=== PATIENT | female | born 1985 | race Caucasian/White ===

== ENCOUNTER 2016-04-17 07:38 | Emergency (ER) | payer OTHER ==
[2016-04-17 07:52] VITALS: BP 123/79; PULSE 88; TEMP 98.3; BMI 31.4
[2016-04-17 08:32] LABS: URINE APPEARANCE CLEAR; URINE BILIRUBIN NEGATIVE (NEGATIVE); URINE COLOR YELLOW; URINE GLUCOSE (UA) NEGATIVE (NEGATIVE); URINE KETONE NEGATIVE (NEGATIVE); URINE LEUK ESTERASE NEGATIVE (NEGATIVE); URINE NITRITE NEGATIVE (NEGATIVE); URINE PROTEIN NEGATIVE (NEGATIVE); URINE UROBILINOGEN NEGATIVE E.U./dl (0.2-1.0)
--- NOTE | 2016-04-17 08:34 | PDOC ---
History of Present Illness - General Chief Complaint: Back Pain Stated Complaint: LOW BACK PAIN Time Seen by Provider: 04/17/16 08:10 History Source: Patient Exam Limitations: No Limitations - History of Present Illness Initial Comments: 04/17/16 08:30 30 yr female presents with low back pain radiates to the left thigh and buttock for 3 days. Pt states she lifts her toddler often states she may have pulled her back. No medical history or allergies, LMP 3 weeks ago. Denies urine or bowell dysfunction, no saddle anesthesia. Occurred: reports: last week Severity: reports: moderate Pain Location: reports: back Method of Injury: Yes: unknown Loss of Consciousness: no loss of consciousness Associated Symptoms (Fall): denies symptoms Past History - Past Medical History Allergies/Adverse Reactions: Allergies Allergy/AdvReac Type Severity Reaction Status Date / Time No Known Allergies Allergy Verified 04/17/16 07:44 Home Medications: Ambulatory Orders Vit #108/Iron/FA [ One Tablet] 1 each PO DAILY 10/22/13 Calcium Carbonate [Calcium] 500 mg PO DAILY 10/25/13 Ibuprofen [Motrin -] 600 mg PO Q4H PRN #60 tablet 10/28/13 Cyclobenzaprine HCl [Flexeril -] 10 mg PO TID PRN #21 tablet 04/17/16 Naproxen [Naprosyn -] 500 mg PO BID PRN #14 tablet 04/17/16 Asthma: No Cancer: No Cardiac Disorders: No Diabetes: No HTN: No Seizures: No Thyroid Disease: No Other medical history: pitutary gland tumor - Surgical History Abdominal Surgery: Yes (lt ovary removed endometriosis) - Psycho/Social/Smoking Cessation Hx Anxiety: No Suicidal Ideation: No Smoking History: Never smoked Have you smoked in the past 12 months: No Information on smoking cessation initiated: No Hx Alcohol Use: No Drug/Substance Use Hx: No Substance Use Type: None Hx Substance Use Treatment: No Trauma Specific PMHX - Complaint Specific PMHX Arthritis: No Back Injury: No Neck Injury: No Hx Sacro Iliac Joint Dysfunction: No Review of Systems - Review of Systems Able to Perform ROS?: Yes Is the patient limited Mauritanian proficient: No Constitutional: No: Symptoms Reported HEENTM: No: Symptoms Reported Respiratory: No: Symptoms reported Cardiac (ROS): No: Symptoms Reported ABD/GI: No: Symptoms Reported : No: Symptoms Reported Musculoskeletal: Yes: See HPI, Back Pain Integumentary: No: Symptoms Reported *Physical Exam - Vital Signs Last Vital Signs Temp Pulse Resp BP Pulse Ox 98.3 F 88 18 123/79 100 04/17/16 07:45 04/17/16 07:45 04/17/16 07:45 04/17/16 07:45 04/17/16 07:45 - Physical Exam General Appearance: Yes: Nourished, Appropriately Dressed HEENT: positive: EOMI, PAO, Normal ENT Inspection, TMs Normal, Pharynx Normal Neck: positive: Supple. negative: Tender Respiratory/Chest: positive: Lungs Clear, Normal Breath Sounds. negative: Chest Tender Cardiovascular: positive: Regular Rhythm, Regular Rate Gastrointestinal/Abdominal: positive: Normal Bowel Sounds, Soft Musculoskeletal: positive: Normal Inspection, Other (low back pain no vetebral tenderness, paraspinal left side muscle tenderness to touch ). negative: CVA Tenderness, CVA Tenderness (R), CVA Tenderness (L), Decreased Range of Motion Extremity: positive: Normal Capillary Refill, Normal Inspection, Normal Range of Motion, Other (neg SLR) Integumentary: positive: Normal Color, Dry, Warm Neurologic: positive: Fully Oriented, Alert, Normal Mood/Affect, Normal Response , Motor Strength 5/5 Medical Decision Making - Medical Decision Making 04/17/16 08:36 cc: low back pain radiates to left buttock and thigh no urine or bowel dysfunction no abd pain or nvd will r/o , UTI toradol for pain 04/17/16 15:50 I have discussed in detail the plan of care with patient. all questions asked and answered prior to discharge. 04/17/16 15:52 *DC/Admit/Observation/Transfer Diagnosis at time of Disposition: Low back pain Qualifiers: Chronicity: acute Back pain laterality: midline Sciatica presence: with sciatica Sciatica laterality: sciatica of left side Qualified Code(s): M54.42 - Lumbago with sciatica, left side - Discharge Dispostion Disposition: HOME Condition at time of disposition: Good - Prescriptions Prescriptions: Cyclobenzaprine HCl [Flexeril -] 10 mg PO TID PRN #21 tablet PRN Reason: Muscle Spasms Naproxen [Naprosyn -] 500 mg PO BID PRN #14 tablet PRN Reason: Back Pain - Referrals Referrals: STAFF,NOT ON [Primary Care Provider] - Maicol Godinez MD [Staff Physician] - - Patient Instructions Additional Instructions: apply heating pad to low back every 3 hrs for 15 minutes or so take naprosyn as directed for pain take flexeril muscle relaxant as needed DO NOT DRIVE OR DRINK ALCOHOL WHILE TAKING FLEXERIL follow with your doctor or the orthopedist if symptoms worsen or do not improve in a few days
[2016-04-17 08:37] LABS: URINE BLOOD 1+ (NEGATIVE)
[2016-04-17 08:39] LABS: URINE BACTERIA RARE /hpf (NONE SEEN); URINE MUCUS FEW; URINE RBC 2 /hpf (0-3); URINE WBC 1 /hpf (3-5)
[2016-04-17] MEDS ORDERED: KETOROLAC TROMETHAMINE 60 MG/2 ML VIAL IM ONE (08:42)
[2016-04-17] MEDS ORDERED: KETOROLAC TROMETHAMINE 60 MG/2 ML VIAL ONE (08:47)
== END 2016-04-17 09:21 | disposition home or self-care (01) ==
LOC: JERFT 07:38 → JER 07:38 → JERFT 09:21
PROC: 3E0233Z Introduction of Anti-inflammatory into Muscle, Percutaneous Approach (ICD-10-PCS; principal; 2016-04-17)
DX: M54.42 Lumbago with sciatica, left side (principal); X50.0XXA Overexertion from strenuous movement or load, initial encounter; X50.9XXA Other and unspecified overexertion or strenuous movements or postures, initial encounter; Y93.F2 Activity, caregiving, lifting; Y92.018 Other place in single-family (private) house as the place of occurrence of the external cause
CPT/HCPCS: 81003; 81015; 84703; 99281-25

== ENCOUNTER 2016-11-05 09:15 | Emergency (ER) | payer OTHER ==
[2016-11-05 09:19] VITALS: BP 124/74; PULSE 76; TEMP 98.4; BMI 31.1
--- NOTE | 2016-11-05 09:49 | PDOC ---
History of Present Illness - History of Present Illness Initial Comments: 11/05/16 10:22 The patient is a 31 year old female, with a past medical history of endometriosis s/p left ovarian cyst removal and pituitary gland tumor, who presents to the emergency department with complaint of shortness of breath and mild, intermittent chest discomfort s/p getting upset last night. She denies exacerbating or alleviating factors for her shortness of breath. She denies history of asthma. She denies recent travels. She states she had a planned vacation for yesterday, however, something stressful happened and she was unable to go. She reports her chest discomfort as a throbbing that comes and goes localized to the her left anterior chest wall and non-radiating. She rates her chest discomfort as 5/10 in severity and denies any exacerbating or alleviating factors to her pain when the pain is present. She denies headache and dizziness. She denies fever, chills, nausea, vomit, diarrhea and constipation She denies dysuria, frequency, urgency and hematuria. Allergies: NKDA Past surgical history: Pt denies Social history: Pt denies use of tobacco or illicit drugs. Pt denies alcohol consumption PCP - Dr. Luzmaria Alexander ([phone]) <Petrona Beth - Last Filed: 11/05/16 11:52> <Lilliana Rodriguez - Last Filed: 11/05/16 16:03> - General Chief Complaint: Shortness of Breath Stated Complaint: SOB, CHEST PAIN Time Seen by Provider: 11/05/16 09:35 Past History <Petrona Beth - Last Filed: 11/05/16 11:52> - Past Medical History Asthma: No Cancer: No Cardiac Disorders: No Diabetes: No HTN: No Psychiatric Problems: Yes (possible anxiety) Seizures: No Thyroid Disease: No - Surgical History Abdominal Surgery: Yes (lt ovary removed endometriosis) - Psycho/Social/Smoking Cessation Hx Anxiety: No Suicidal Ideation: No Smoking History: Never smoked Have you smoked in the past 12 months: No Information on smoking cessation initiated: No Hx Alcohol Use: No Drug/Substance Use Hx: No Substance Use Type: None Hx Substance Use Treatment: No <Lilliana Rodriguez - Last Filed: 11/05/16 16:03> - Past Medical History Allergies/Adverse Reactions: Allergies Allergy/AdvReac Type Severity Reaction Status Date / Time No Known Allergies Allergy Verified 11/05/16 09:19 Home Medications: Ambulatory Orders Vit #108/Iron/FA [ One Tablet] 1 each PO DAILY 10/22/13 Calcium Carbonate [Calcium] 500 mg PO DAILY 10/25/13 Ibuprofen [Motrin -] 600 mg PO Q4H PRN #60 tablet 10/28/13 Cyclobenzaprine HCl [Flexeril -] 10 mg PO TID PRN #21 tablet 04/17/16 Naproxen [Naprosyn -] 500 mg PO BID PRN #14 tablet 04/17/16 Review of Systems - Review of Systems Able to Perform ROS?: Yes Comments:: 11/05/16 10:22 GENERAL/CONSTITUTIONAL: No fever or chills. No weakness. HEAD, EYES, EARS, NOSE AND THROAT: No change in vision. No ear pain or discharge. No sore throat. CARDIOVASCULAR: (+) shortness of breath and chest discomfort RESPIRATORY: No cough, wheezing, or hemoptysis. GASTROINTESTINAL: No nausea, vomiting, diarrhea or constipation. GENITOURINARY: No dysuria, frequency, or change in urination. MUSCULOSKELETAL: No joint or muscle swelling or pain. No neck or back pain. SKIN: No rash NEUROLOGIC: No headache, vertigo, loss of consciousness, or change in strength/ sensation. ENDOCRINE: No increased thirst. No abnormal weight change. HEMATOLOGIC/LYMPHATIC: No anemia, easy bleeding, or history of blood clots. ALLERGIC/IMMUNOLOGIC: No hives or skin allergy. <Petrona Beth - Last Filed: 11/05/16 11:52> *Physical Exam - Vital Signs Last Vital Signs Temp Pulse Resp BP Pulse Ox 98.4 F 76 18 124/74 100 11/05/16 09:17 11/05/16 09:17 11/05/16 09:17 11/05/16 09:17 11/05/16 09:17 - Physical Exam Comments: 11/05/16 10:23 GENERAL: Awake, alert, and fully oriented, in no acute distress HEAD: No signs of trauma EYES: PERRLA, EOMI, sclera anicteric, conjunctiva clear ENT: Auricles normal inspection, hearing grossly normal, nares patent, oropharynx clear without exudates. Moist mucosa NECK: Normal ROM, supple, no lymphadenopathy, JVD, or masses LUNGS: Breath sounds equal, clear to auscultation bilaterally. No wheezes, and no crackles HEART: Regular rate and rhythm, normal S1 and S2, no murmurs, rubs or gallops ABDOMEN: Soft, nontender, normoactive bowel sounds. No guarding, no rebound. No masses EXTREMITIES: Normal range of motion, no edema. No clubbing or cyanosis. No cords, erythema, or tenderness NEUROLOGICAL: Cranial nerves II through XII grossly intact. Normal speech, normal gait SKIN: Warm, Dry, normal turgor, no rashes or lesions noted. <Petrona Beth - Last Filed: 11/05/16 11:52> - Vital Signs Last Vital Signs Temp Pulse Resp BP Pulse Ox 98.4 F 76 18 124/74 100 11/05/16 09:17 11/05/16 09:17 11/05/16 09:17 11/05/16 09:17 11/05/16 09:17 <Lilliana Rodriguez - Last Filed: 11/05/16 16:03> Heart Score/ECG Review - [place] Comment: 11/05/16 09:30 EKG was read by Dr. Rodriguez Impression: Normal sinus rhythm <Petrona Beth - Last Filed: 11/05/16 11:52> ED Treatment Course - RADIOLOGY Radiograph Interpretation: 11/05/16 11:23 CXR was read by Dr. Dias at 11:13 Impression: No acute pathology <Petrona Beth - Last Filed: 11/05/16 11:52> Medical Decision Making - Medical Decision Making 11/05/16 16:01 PT presents to the ED complaining of a two day history of atypical chest pain. EKG and CXR are normal. HEART score is 0, PERC negative. Most likely musculoskeletal chest pain. Will discharge home with medical follow up. <Lilliana Rodriguez - Last Filed: 11/05/16 16:03> *DC/Admit/Observation/Transfer - Attestations Scribe Attestion: 11/05/16 10:23 Documentation prepared by Petrona Beth, acting as medical technician assistant for Lilliana Rodriguez MD, <Petrona Beth - Last Filed: 11/05/16 11:52> - Discharge Dispostion Admit: No <Lilliana Rodriguez - Last Filed: 11/05/16 16:03> Diagnosis at time of Disposition: DISCHARGED - Discharge Dispostion Disposition: HOME Condition at time of disposition: Good - Referrals Referrals: Luzmaria Alexander MD [Primary Care Provider] - - Patient Instructions Printed Discharge Instructions: DI for Atypical Chest Pain
[2016-11-05] MEDS ORDERED: IBUPROFEN 600 MG TABLET (FP) PO ONE ×2 (11:40→11:48)
--- NOTE | 2016-11-05 13:17 | EKG ---
Test Reason : Blood Pressure : / mmHG Vent. Rate : 073 BPM Atrial Rate : 073 BPM P-R Int : 112 ms QRS Dur : 078 ms QT Int : 362 ms P-R-T Axes : 039 048 051 degrees QTc Int : 398 ms NORMAL SINUS RHYTHM NORMAL ECG NO PREVIOUS ECGS AVAILABLE BASELINE ARTIFACT Confirmed by LESLEE SOUSA, BHARATHI ([id number]) on 11/05/2016 1:17:28 PM Referred By: Confirmed By:BHARATHI CAMILO MD
== END 2016-11-05 12:44 | disposition home or self-care (01) ==
LOC: JER 09:15
DX: R07.89 Other chest pain (principal); F99 Mental disorder, not otherwise specified
CPT/HCPCS: 71020-TC; 84703; 93005; 93010; 99282-25

== ENCOUNTER 2018-01-04 01:05 | Inpatient (IN) | payer OTHER ==
[2018-01-04] MEDS ORDERED: AMPICILLIN - 2 GM in SODIUM CHLORIDE 100 ML IVPB ONE (01:30)
[2018-01-04] MEDS: DEXTROSE 5%-LACTATED RINGERS 1,000 ML IV SCH (01:30)
[2018-01-04 01:41] LABS: BASO % 0.4 % (0-2.0); EOS % 0.3 % (0-4.5); HEMOGLOBIN 11.7 GM/dL (10.7-15.3); MCH 31.2 pg (25.7-33.7); MCHC 33.5 g/dl (32.0-36.0); MEAN CELL VOLUME 93.1 fl (80-96); MEAN PLT VOLUME 9.4 fl (7.5-11.1); MONO % 7.5 % (3.8-10.2); NEUT % 74.8 % (42.8-82.8); PLATELET COUNT 176 K/MM3 (134-434); RBC 3.76 M/mm3 (3.60-5.2); RDW 13.4 % (11.6-15.6); WHITE BLOOD COUNT 13.4 K/mm3 (4.0-10.0)
[2018-01-04 01:54] LABS: INR 0.87 (0.83-1.09); PROTHROMBIN TIME (PATIENT) 10.3 SEC (9.7-13.0)
[2018-01-04] MEDS ORDERED: PROMETHAZINE HCL 25 MG/1 ML VIAL IVPB PRN (01:54)
[2018-01-04] MEDS ORDERED: BUTORPHANOL TARTRATE 1 MG/ML VIAL IVPB PRN ×2 (01:54→02:25)
[2018-01-04 01:56] LABS: ACTIVATED PTT 23.8 SECONDS (25.2-36.5)
[2018-01-04 02:00] LABS: ANION GAP 10 MMOL/L (8-16); BLOOD UREA NITROGEN 12 mg/dL (7-18); CALCIUM 8.9 mg/dL (8.5-10.1); CHLORIDE 108 mmol/L (98-107); CO2 21 mmol/L (21-32); CREATININE 0.6 mg/dL (0.55-1.3); GLUCOSE,RANDOM 112 mg/dL (74-106); POTASSIUM 3.9 mmol/L (3.5-5.1); SODIUM 139 mmol/L (136-145)
[2018-01-04 02:21] VITALS: BMI 36.2
--- NOTE | 2018-01-04 03:10 | HP ---
Past Medical History - Primary Care Physician PCP:: Canelo Greer - Admission Chief Complaint: 38.4 weeks, labor History of Present Illness: 32 yo f [place] c [place] 01/14/18 38,4 weeks, c/o contraction,., no rom, cx 3 cm 80 vx -2 mi, fh cat i, regular contraction History Source: Patient Limitations to Obtaining History: No Limitations - Past Medical History ...: 2 ...Para: 1 ...Term: 1 ...: 0 ...Spon : 0 ...Induced : 0 ...Multiple Gestation: 0 ...LMP: 04/06/17 ... Weeks Gestation by Dates: 39.0 ...EDC by Dates: 01/11/18 ...EDC by [facility]: 01/14/18 Endocrine: Yes: Other (pituitary microadenoma) Additional Medical History: pituitary tumor - Past Surgical History Past Surgical History: Yes: Oopherectomy (lt ovarian cystectomy, endometriosis) - Smoking History Smoking history: Never smoked Have you smoked in the past 12 months: No - Alcohol/Substance Use Hx Alcohol Use: No History of Substance Use: reports: None - Social History Usual Living Arrangement: Yes: With Spouse ADL: Independent History of Recent Travel: No Home Medications - Allergies Allergies/Adverse Reactions: Allergies Allergy/AdvReac Type Severity Reaction Status Date / Time No Known Allergies Allergy Verified 12/30/17 02:49 - Home Medications Home Medications: Ambulatory Orders Vitamins (Sjr) - 1 tab PO DAILY 12/04/17 Review of Systems - Review of Systems Constitutional: reports: No Symptoms Eyes: reports: No Symptoms HENT: reports: No Symptoms Neck: reports: No Symptoms Cardiovascular: reports: No Symptoms Respiratory: reports: No Symptoms Gastrointestinal: reports: No Symptoms Genitourinary: reports: No Symptoms Breasts: reports: No Symptoms Reported Musculoskeletal: reports: No Symptoms Integumentary: reports: No Symptoms Neurological: reports: No Symptoms Endocrine: reports: No Symptoms Hematology/Lymphatic: reports: No Symptoms Psychiatric: reports: No Symptoms Physical Exam - Maternity Vital Signs: Vital Signs Temperature 97.9 F 01/04/18 01:05 Pulse Rate 95 H 01/04/18 01:05 Respiratory Rate 18 01/04/18 01:05 Blood Pressure 115/80 01/04/18 01:05 O2 Sat by Pulse Oximetry (%) Constitutional: Yes: Well Nourished, No Distress, Calm Eyes: Yes: WNL, Conjunctiva Clear, EOM Intact HENT: Yes: WNL, Atraumatic, Normocephalic Neck: Yes: WNL, Supple, Trachea Midline Cardiovascular: Yes: WNL, Regular Rate and Rhythm Breast(s): Yes: WNL - Abdominal Exam/OB Fundal Height: 38 Number of Fetuses: Single Presentation: Vertex Contractions: Yes Regularity: Regular Intensity: Mod/Strong Monitor Mode: External Heart Rate Location: [facility] Category: I Accelerations: Uniform Decelerations: None - Vaginal Exam/OB Vaginal Bleediing: Bloody Show Speculum Exam: No Dilatation (cm): 3 cm Effacement (%): 80 Amniotic Membrane Status: Intact Presentation: Vertex/Position Station: -2 - Physical Exam Musculoskeletal: Yes: WNL Edema: Yes Edema: LLE: Trace, RLE: Trace Deep Tendon Reflex Grade: Normal +2 ...Motor Strength: WNL Psychiatric: Yes: WNL - Labs Lab Results: CBC, BMP 01/04/18 01:30 01/04/18 01:30 Hemorrhage Risk Assessment - Risk Factors Medium Risk Factors: Yes: None High Risk Factors: Yes: None Risk Score: 1 Risk Level: Medium Risk Problem List - Problems (1) with 38 completed weeks gestation Code(s): Z3A.38 - 38 WEEKS GESTATION OF (2) First stage of labor established Code(s): XEA5170 - (3) Group B streptococcal infection during Code(s): O98.819 - OTH MATERNAL INFEC/PARASTC DISEASES COMP PREG, UNSP TRI; B95.1 - STREPTOCOCCUS, GROUP B, CAUSING DISEASES CLASSD ELSWHR Assessment/Plan plan admit, FHM, iv ampicillin, pain management expect vaginal delivery
[2018-01-04] MEDS ORDERED: PROMETHAZINE HCL 25 MG/1 ML VIAL IVPUSH ONE (03:47)
[2018-01-04] MEDS ORDERED: BUTORPHANOL TARTRATE 1 MG/ML VIAL IVPUSH ONE (03:47)
[2018-01-04] MEDS ORDERED: BUTORPHANOL TARTRATE 1 MG/ML VIAL ONE ×2 (03:54)
[2018-01-04] MEDS ORDERED: PROMETHAZINE HCL 25 MG/1 ML VIAL ONE (03:54)
[2018-01-04] MEDS ORDERED: AMPICILLIN SODIUM 1 GM VIAL ONE (05:09)
[2018-01-04] MEDS ORDERED: AMPICILLIN - 1 GM in SODIUM CHLORIDE 100 ML IVPB SCH (05:30)
[2018-01-04] MEDS ORDERED: TUBERCULIN PPD 5 TU/0.1ML SYRINGE (IN PATIENT USE ONLY) ID ONE (06:30)
[2018-01-04] MEDS ORDERED: LIDOCAINE HCL 1% PRESERVATIVE FREE - 30ML VIAL ONE (07:00)
[2018-01-04] MEDS ORDERED: OXYTOCIN 20 UNITS in 0.9% NS 20 UNIT/1,000 ML INFUS.BAG IV ONE (07:00)
[2018-01-04] MEDS: OXYTOCIN 20 UNITS in 0.9% NS 20 UNIT/1,000 ML INFUS.BAG IV SCH (08:55)
[2018-01-04] MEDS ORDERED: BENZOCAINE 28 GM HEMORRHOIDAL OINTMENT TP PRN (09:02)
[2018-01-04] MEDS ORDERED: WITCH HAZEL 50% (TUCKS) 40 PAD/JAR PAD TP PRN (09:02)
[2018-01-04] MEDS ORDERED: METHYLERGONOVINE MALEATE 0.2 MG/1 ML AMP IM PRN (09:02)
[2018-01-04] MEDS ORDERED: BISACODYL 10 MG SUPP.RECT RC PRN (09:02)
[2018-01-04] MEDS ORDERED: BENZOCAINE 20% 57 GM BOTTLE TP PRN (09:02)
[2018-01-04] MEDS ORDERED: D5W-LR W/ 20 UNITS OXYTOCIN 20 UNIT/1,000 ML INFUS.BAG IV SCH (09:15)
[2018-01-04 09:24] LABS: VENOUS PC02 65.8 mmHg (38-52); VENOUS PH 7.22 (7.32-7.42); VENOUS PO2 17.1 mmHg (28-48)
[2018-01-04 09:25] LABS: ARTERIAL BLD GAS O2 SATURATION 77.1 % (90-98.9); ARTERIAL BLOOD GAS PO2 39.9 mmHg (80-100); ARTERIAL BLOOD GAS pH 7.36 (7.35-7.45)
[2018-01-04] MEDS: PRENATAL VITAMINS W/ FOLIC ACID TABLET (FP) PO SCH (10:00)
[2018-01-04] MEDS: FERROUS SO4 325 MG TABLET (FP) PO SCH ×2 (10:00→21:35)
[2018-01-04] MEDS ORDERED: IBUPROFEN 600 MG TABLET (FP) PO ONE (11:54)
[2018-01-04] MEDS ORDERED: ACETAMINOPHEN 325 MG TABLET (FP) ONE (11:54)
[2018-01-04] MEDS: IBUPROFEN 600 MG TABLET (FP) PO PRN (12:00)
[2018-01-04] MEDS: ACETAMINOPHEN 325 MG TABLET (FP) PO PRN (12:00)
[2018-01-05] MEDS: IBUPROFEN 600 MG TABLET (FP) PO PRN (06:28)
[2018-01-05] MEDS: ACETAMINOPHEN 325 MG TABLET (FP) PO PRN (06:29)
[2018-01-05 07:39] LABS: BASO % 0.3 % (0-2.0); EOS % 0.4 % (0-4.5); HEMATOCRIT 29.1 % (32.4-45.2); HEMOGLOBIN 9.6 GM/dL (10.7-15.3); MCH 31.3 pg (25.7-33.7); MCHC 33.2 g/dl (32.0-36.0); MEAN CELL VOLUME 94.5 fl (80-96); MEAN PLT VOLUME 9.5 fl (7.5-11.1); MONO % 6.7 % (3.8-10.2); NEUT % 71.6 % (42.8-82.8); PLATELET COUNT 118 K/MM3 (134-434); RBC 3.08 M/mm3 (3.60-5.2); RDW 13.5 % (11.6-15.6); WHITE BLOOD COUNT 13.6 K/mm3 (4.0-10.0)
[2018-01-05] MEDS: PRENATAL VITAMINS W/ FOLIC ACID TABLET (FP) PO SCH (10:03)
[2018-01-05] MEDS: FERROUS SO4 325 MG TABLET (FP) PO SCH ×2 (10:03→21:26)
[2018-01-05] MEDS: DEXTROSE 5%-LACTATED RINGERS 1,000 ML IV SCH (10:04)
[2018-01-05] MEDS: OXYTOCIN 20 UNITS in 0.9% NS 20 UNIT/1,000 ML INFUS.BAG IV SCH (10:04)
[2018-01-05] MEDS ORDERED: SENNOSIDES/DOCUSATE COMBO (SENNA PLUS) TABLET (UD) PO PRN (16:41)
--- NOTE | 2018-01-05 19:10 | PN ---
Post Progress Note - Subjective Subjective: No complaints Post Day: 1 Type of Delivery: Vital Signs: Vital Signs Temperature 97.9 F 01/05/18 08:28 Pulse Rate 72 01/05/18 08:28 Respiratory Rate 20 01/05/18 08:28 Blood Pressure 127/72 01/05/18 08:28 O2 Sat by Pulse Oximetry (%) Breast Exam: Yes: Soft Uterus: Yes: Fundus Firm, Fundus below umbilicus, Non-tender Abdomen/GI: Yes: Abdomen soft, Passing flatus, Tolerating PO Lochia: Yes: Rubra Lochia, amount: Small Extremities: Yes: Calves non-tender Perineum: Yes: Laceration (repair intact) Activity: Ambulating - Labs Labs: CBC WBC 13.6 K/mm3 (4.0-10.0) H 01/05/18 07:02 RBC 3.08 M/mm3 (3.60-5.2) L 01/05/18 07:02 Hgb 9.6 GM/dL (10.7-15.3) L 01/05/18 07:02 Hct 29.1 % (32.4-45.2) L D 01/05/18 07:02 MCV 94.5 fl (80-96) 01/05/18 07:02 MCH 31.3 pg (25.7-33.7) 01/05/18 07:02 MCHC 33.2 g/dl (32.0-36.0) 01/05/18 07:02 RDW 13.5 % (11.6-15.6) 01/05/18 07:02 Plt Count 118 K/MM3 (134-434) L D 01/05/18 07:02 MPV 9.5 fl (7.5-11.1) 01/05/18 07:02 Absolute Neuts (auto) 9.7 K/mm3 (1.5-8.0) H 01/05/18 07:02 Neutrophils % 71.6 % (42.8-82.8) 01/05/18 07:02 Lymphocytes % 21.0 % (8-40) D 01/05/18 07:02 Monocytes % 6.7 % (3.8-10.2) 01/05/18 07:02 Eosinophils % 0.4 % (0-4.5) 01/05/18 07:02 Basophils % 0.3 % (0-2.0) 01/05/18 07:02 Nucleated RBC % 0 % (0-0) 01/05/18 07:02 Assessment/Plan 32yo P2 s/p , doing well stable, afebrile. Asymptomatic for anemia. care instructions reviewed. Continue routine care. Ambulation encouraged Discharge instruction reviewed.
--- NOTE | 2018-01-05 19:16 | DS ---
Physical Exam-DIRECTOR OF ENTERTAINMENT Vital Signs: Vital Signs Temperature 97.9 F 01/05/18 08:28 Pulse Rate 72 01/05/18 08:28 Respiratory Rate 20 01/05/18 08:28 Blood Pressure 127/72 01/05/18 08:28 O2 Sat by Pulse Oximetry (%) Constitutional: Yes: Well Nourished, No Distress, Calm Eyes: Yes: WNL, Conjunctiva Clear HENT: Yes: WNL, Atraumatic, Normocephalic Neck: Yes: WNL, Supple, Trachea Midline Cardiovascular: Yes: WNL, Regular Rate and Rhythm Respiratory: Yes: WNL, Regular, CTA Bilaterally Gastrointestinal: Yes: WNL, Normal Bowel Sounds, Soft ...Rectal Exam: Yes: Deferred Renal/: Yes: WNL ....Post : Yes: Uterus firm, Uterus non-tender, Slight lochia rubra Breast(s): Yes: WNL Musculoskeletal: Yes: WNL Extremities: Yes: WNL Edema: Yes Edema: LLE: Trace, RLE: Trace Integumentary: Yes: WNL Neurological: Yes: WNL, Alert, Oriented ...Motor Strength: WNL Psychiatric: Yes: WNL, Alert, Oriented Labs: CBC, BMP 01/05/18 07:02 01/04/18 01:30 Delivery - Delivery Vaginal Delivery: No Problems, Spontaneous Type of Anesthesia: Local Episiotomy/Laceration: Vaginal Extension/lac, 2nd degree EBL (cc): 250 Delivery, Single - Stages of Labor Date 1st Stage Initiatied: 01/04/18 Time 1st Stage Initiated: 00:00 Date 2nd Stage Initiated: 01/04/18 Time 2nd Stage Initiated: 08:00 Date of Delivery: 01/04/18 Time of Delivery: 08:43 Time Placenta Delivered: 08:55 Placenta: Yes: Spontaneous, Normal Configuration - Condition of Infant Web Site Designer/Stock Counter Present: Yes Name: Amie Zavaleta Infant Gender: Female Weight: 2.75 kg Position: Left, OA Total Hours ROM (Hrs/Mins): 2 hr. 3 min - 1 Minute Total Score: 9 5 Minutes Total Score: 9 - [place] Feeding Plan Initial Plan: Elected not to breastfeed exclusively throughout hospitalization Benefits of Exclusively reinforced: Yes Discharge Summary Reason For Visit: ADMIT LABOR Current Active Problems First stage of labor established (Acute) Group B streptococcal infection during (Acute) with 38 completed weeks gestation (Acute) Procedures: Principal: Hospital Course: Normal recovery Condition: Good - Instructions Diet, Activity, Other Instructions: Physical activity Resume your normal everyday activity as tolerated no heavy lifting or exercise until seen by your surgeon. You may walk unlimited kristin of and climb stairs. You may resume driving the car when you feel safe and comfortable behind the wheel. No sexual activity as instructed. Wound care If you have a bandage, leave it on, and keep dry for 48-72 hours. After that time discard the outer bandage. If they are tapes on the skin under the out of bandage leave them in place. They will peel off in the next 7 to 10 days. Do Not Peel them off. You may shower the day after surgery. If there are tapes present on the skin, you may shower over them. Diet There are no dietary restrictions. Eat healthy, high-fiber foods. Drink 6 to 8 glasses of liquid each day. This will assist in keeping your bowels are regular. Pain management You may take Tylenol or acetaminophen or Ibuprofen (for example, Motrin, Advil etc.) from my pain prescription medication is ordered should be taken as prescribed for moderate to severe pain. Call MD for any of the following: Severe pain not relieved by medication Fever of 101 or higher Excessive bleeding or drainage on dressing Inability to urinate Referrals: Canelo Greer MD [Staff Physician] - Disposition: HOME - Home Medications Comprehensive Discharge Medication List: Ambulatory Orders Vitamins (Sjr) - 1 tab PO DAILY 12/04/17
[2018-01-05 22:11] VITALS: TEMP 98.1
[2018-01-06 09:20] VITALS: BP 105/67; PULSE 71
[2018-01-06] MEDS: PRENATAL VITAMINS W/ FOLIC ACID TABLET (FP) PO SCH (10:32)
[2018-01-06] MEDS: FERROUS SO4 325 MG TABLET (FP) PO SCH (10:32)
== END 2018-01-06 12:00 | disposition home or self-care (01) | DRG 807 ==
LOC: JLDR 01:05 → J3W 15:25
PROVIDERS: ADMIT Obstetrics & Gynecology; ATTEND Obstetrics & Gynecology
PROC: 10E0XZZ Delivery of Products of Conception, External Approach (ICD-10-PCS; principal; 2018-01-04)
PROC: 0KQM0ZZ Repair Perineum Muscle, Open Approach (ICD-10-PCS; 2018-01-04)
DX: O99.824 Streptococcus B carrier state complicating childbirth (principal); O70.1 Second degree perineal laceration during delivery; Z37.0 Single live birth; Z3A.38 38 weeks gestation of pregnancy
CPT/HCPCS: 36415; 36600; 59409; 80048; 82803; 85025; 85610; 85730; 86593; 86850; 86900; 86901; 87389

== ENCOUNTER 2019-12-31 20:00 | Inpatient (IN) | payer OTHER ==
[2019-12-31] MEDS ORDERED: AMPICILLIN SODIUM 2 GM VIAL ONE (21:16)
[2019-12-31] MEDS ORDERED: CITRIC ACID/SODIUM CITRATE 30 ML UNIT-DOSE CUP PO ONE (21:26)
[2019-12-31] MEDS ORDERED: AMPICILLIN - 2 GM in SODIUM CHLORIDE 100 ML IVPB ONE (21:26)
[2019-12-31] MEDS ORDERED: ELECTROLYTE-148 SOLN 1,000 ML IV SCH (21:30)
[2019-12-31 21:32] LABS: BASO % 0.1 % (0-2.0); EOS % 0.2 % (0-4.5); HEMATOCRIT 34.9 % (32.4-45.2); HEMOGLOBIN 11.6 GM/dL (10.7-15.3); MCH 30.6 pg (25.7-33.7); MCHC 33.2 g/dl (32.0-36.0); MEAN CELL VOLUME 92.2 fl (80-96); MEAN PLT VOLUME 9.9 fl (7.5-11.1); MONO % 7.9 % (3.8-10.2); NEUT % 76.8 % (42.8-82.8); PLATELET COUNT 155 K/MM3 (134-434); RBC 3.79 M/mm3 (3.60-5.2); RDW 14.1 % (11.6-15.6); WHITE BLOOD COUNT 13.2 K/mm3 (4.0-10.0)
--- NOTE | 2019-12-31 21:38 | HP ---
Past Medical History - Admission Chief Complaint: labor History of Present Illness: 34 yo @ 39 2/7 wks by first trimester ultrasound, EDC 01/05/2020 complicated by: 1. Pituitary adenoma - no meds Seen by [facility] Cleared for epidural (letter in chart) 2. Obesity - starting BMI 35 25 lb wt gain Recent ultrasound 12/10/2019 - 2165g (29%ile) normal early GCT(110) and routine GCT(123) 3. 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 Hypothyroidism - no meds Normal TFTs this Most recent Free T4 0.84 / TSH 0.79 (10/02/2019 5. GBS Positive - no penicillin allergy Patient presents with chief complaint of contractions. She reports movement, denies leakage of fluid or vaginal bleeding. 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) Cardiovascular: No: HTN Reproductive: Yes: Endometriosis ...: 3 ...Para: 2 Heme/Onc: No: Anemia Endocrine: Yes: Hypothyroidism (no meds), Other (pituitary microadenoma) Additional Medical History: pituitary tumor - Past Surgical History Past Surgical History: Yes: Oopherectomy (lt ovarian cystectomy, endometriosis) Hx Myomectomy: No Hx Transabdominal Cerclage: No - Smoking History Smoking history: Never smoked Have you smoked in the past 12 months: No - Alcohol/Substance Use Hx Alcohol Use: No History of Substance Use: reports: None - Social History ADL: Independent History of Recent Travel: No Home Medications - Allergies Allergies/Adverse Reactions: Allergies Allergy/AdvReac Type Severity Reaction Status Date / Time No Known Allergies Allergy Verified 12/30/17 02:49 - Home Medications Home Medications: Ambulatory Orders Vitamins (Sjr) - 1 tab PO DAILY 12/04/17 Family Medical History Family History: Denies Review of Systems - Review of Systems Constitutional: reports: No Symptoms HENT: reports: No Symptoms Neck: reports: No Symptoms Cardiovascular: reports: No Symptoms Respiratory: reports: No Symptoms Gastrointestinal: reports: No Symptoms Genitourinary: reports: No Symptoms Breasts: reports: No Symptoms Reported Integumentary: reports: No Symptoms Neurological: reports: No Symptoms Endocrine: reports: No Symptoms Hematology/Lymphatic: reports: No Symptoms Psychiatric: reports: No Symptoms Physical Exam - Maternity Constitutional: Yes: Well Nourished, No Distress, Calm Cardiovascular: Yes: Regular Rate and Rhythm Lungs: Clear to auscultation - Abdominal Exam/OB Contractions: Yes Regularity: Regular Monitor Mode: External - Physical Exam Psychiatric: Yes: Alert, Oriented - Labs Lab Results: PNL: A positive, antibody negative; RPR NR; HIV neg; Hbs Ag neg; HCV neg; Hg Roselyn AA; GCT (early and routine) WNL; GBS positive Hemorrhage Risk Assessment - Risk Factors Medium Risk Factors: Yes: None High Risk Factors: Yes: None Risk Score: 1 Risk Level: Medium Risk Assessment/Plan 34 yo @ 39+ wks active labor 1. Admit to L&D 2. Routine labs and Covid test collected and sent 3. GBS positive will give ampicillin as patient NKDA 4. Category I FHT 5. Will offer patient epidural upon patient request 6. Will proceed with expectant management
[2019-12-31] MEDS ORDERED: FENTANYL/BUPIVACAINE/NS/PF - PCEA - 50 ML DISP.SYRIN EP ONE (21:42)
[2019-12-31] MEDS ORDERED: PCA PUMP NR ONE (21:42)
[2019-12-31 21:46] LABS: BLOOD UREA NITROGEN 7.6 mg/dL (7-18); CALCIUM 8.8 mg/dL (8.5-10.1); CREATININE 0.6 mg/dL (0.55-1.3); POTASSIUM 3.8 mmol/L (3.5-5.1)
[2019-12-31 21:50] VITALS: BMI 39.6
[2019-12-31] MEDS ORDERED: BUPIVACAINE HCL/PF 0.25% (2.5MG/ML) 10 ML VIAL ONE (21:55)
[2019-12-31] MEDS: FENTANYL/BUPIVACAINE/NS/PF - PCEA - 50 ML DISP.SYRIN EP SCH (22:15)
[2019-12-31 22:49] LABS: INR 0.89 (0.83-1.09); PROTHROMBIN TIME (PATIENT) 10.5 SEC (9.7-13.0)
[2019-12-31] MEDS ORDERED: NALOXONE HCL 0.4 MG/ML VIAL IVPUSH PRN (22:49)
[2019-12-31 22:52] LABS: ACTIVATED PTT 24.4 SECONDS (25.2-36.5)
--- NOTE | 2019-12-31 23:03 | PN ---
Progress Note, Labor Vaginal Exam #1 Labor Exam Date: 12/31/19 Labor Exam Time: 23:01 Heart Rate (range): 150 Dilatation: 9 Effacement (%): 100 Amniotic Membrane Status: Ruptured (clear) Presentation: Vertex/Position Station: 0 Remarks: 34 yo @ 39+ wks, active labor 1. AROM performed, good cervical change 2. GBS pos, s/p amp 3. Category I FHT 4. Pain well controlled with epidural 5. Will proceed with expectant management
[2019-12-31] MEDS ORDERED: OXYTOCIN 20 UNITS in 0.9% NS 20 UNIT/1,000 ML INFUS.BAG IV ONE (23:11)
[2019-12-31] MEDS ORDERED: LIDOCAINE HCL 1% PRESERVATIVE FREE - 30ML VIAL ONE (23:11)
[2019-12-31] MEDS ORDERED: AMPICILLIN SODIUM 1 GM VIAL ONE (23:37)
[2020-01-01] MEDS ORDERED: WITCH HAZEL 50% (TUCKS) 40 PAD/JAR PAD TP PRN (01:28)
[2020-01-01] MEDS ORDERED: METHYLERGONOVINE MALEATE 0.2 MG/1 ML AMP IM PRN (01:28)
[2020-01-01] MEDS ORDERED: ACETAMINOPHEN 325 MG TABLET (FP) PO PRN (01:28)
[2020-01-01] MEDS ORDERED: BENZOCAINE 20% 57 GM BOTTLE TP PRN (01:28)
[2020-01-01] MEDS ORDERED: BENZOCAINE 28 GM HEMORRHOIDAL OINTMENT TP PRN (01:28)
[2020-01-01] MEDS ORDERED: IBUPROFEN 600 MG TABLET (FP) PO PRN (01:28)
[2020-01-01] MEDS ORDERED: BISACODYL 10 MG SUPP.RECT RC PRN (01:28)
--- NOTE | 2020-01-01 01:28 | PN ---
Delivery - Delivery Vaginal Delivery: No Problems Type of Anesthesia: Epidural Episiotomy/Laceration: Midline, 2nd degree EBL (cc): 300 Delivery, Single - Stages of Labor Date of Delivery: 01/01/20 Time of Delivery: 01:00 Date Placenta Delivered: 01/01/20 Time Placenta Delivered: :10 Placenta: Yes: Expressed - Condition of Gender: Male Position: Right, OA - 1 Minute Total Score: 9 5 Minutes Total Score: 9 - [place] Feeding Plan Initial Plan: Elected not to breastfeed exclusively throughout hospitalization Remarks - Remarks Remarks: Patient progressed to fully dilated and at 0100 patient pushed to deliver a viable male infant in RABIA position, APGARs 9,9. Wt and length unknown at this time. Head delivered spontaneously, nuchal cord noted and reduced, shoulders and body followed without difficulty. Infant placed on mother's abdomen. Cord was clamped and cut, cord blood was collected and sent. Vagina and perineum examined and a second degree laceration was noted and r epaired in the usual fashion with 2-0 chromic gut. Placenta was delivered and noted to be intact. Rectal exam revealed no sutures in the rectum. All counts correct x 2 Mother and infant stable in LDR EBL 300
[2020-01-01] MEDS ORDERED: AMPICILLIN - 1 GM in SODIUM CHLORIDE 100 ML IVPB SCH (01:29)
[2020-01-01] MEDS ORDERED: OXYTOCIN 20 UNITS in 0.9% NS 20 UNIT/1,000 ML INFUS.BAG IV SCH (01:30)
[2020-01-01] MEDS: PRENATAL VITAMINS W/ FOLIC ACID TABLET (FP) PO SCH (10:30)
--- NOTE | 2020-01-02 07:07 | PN ---
Progress Note (short form) - Note Progress Note: ppd1 ,no c/o, voids ok ,no excess vaginal bleeding Last Vital Signs Temp Pulse Resp BP Pulse Ox 98 F 86 18 121/73 98 01/01/20 22:00 01/01/20 22:00 01/01/20 22:00 01/01/20 22:00 01/01/20 02:15 abdomen soft, uterus firm, non tender lochia mild no calf tenderness plan ambulate , cbc plan for d/c home in am
[2020-01-02] MEDS: FENTANYL/BUPIVACAINE/NS/PF - PCEA - 50 ML DISP.SYRIN EP SCH (07:19)
--- NOTE | 2020-01-02 08:46 | DS ---
Physical Exam-ONLINE EDITOR Vital Signs: Vital Signs Temperature 98 F 01/01/20 22:00 Pulse Rate 86 01/01/20 22:00 Respiratory Rate 18 01/01/20 22:00 Blood Pressure 121/73 01/01/20 22:00 O2 Sat by Pulse Oximetry (%) 98 01/01/20 02:15 Constitutional: Yes: Well Nourished, No Distress, Calm Eyes: Yes: WNL, Conjunctiva Clear, EOM Intact HENT: Yes: WNL, Atraumatic, Normocephalic Neck: Yes: WNL, Supple, Trachea Midline Cardiovascular: Yes: WNL, Regular Rate and Rhythm Respiratory: Yes: WNL, Regular, CTA Bilaterally Gastrointestinal: Yes: WNL ...Rectal Exam: Yes: WNL Renal/: Yes: WNL ....Post : Yes: Uterus firm, Uterus non-tender, Slight lochia rubra Breast(s): Yes: WNL Musculoskeletal: Yes: WNL Extremities: Yes: WNL Edema: No Integumentary: Yes: WNL Neurological: Yes: WNL, Alert, Oriented ...Motor Strength: WNL Psychiatric: Yes: WNL, Alert, Oriented Labs: CBC, BMP 12/31/19 21:00 Delivery - Delivery Vaginal Delivery: No Problems, Spontaneous Type of Anesthesia: Epidural Episiotomy/Laceration: Midline, 2nd degree EBL (cc): 300 Delivery, Single - Stages of Labor Date 1st Stage Initiatied: 12/31/19 Time 1st Stage Initiated: 22:15 Date 2nd Stage Initiated: 01/01/20 Time 2nd Stage Initiated: 00:30 Date of Delivery: 01/01/20 Time of Delivery: 01:00 Time Placenta Delivered: 01:10 Placenta: Yes: Expressed - Condition of Infant Trauma Manager/Airplane Refueler Present: No Gender: Male Weight: 6 lb 7 oz Position: Right, OA Total Hours ROM (Hrs/Mins): 2h 0m - 1 Minute Total Score: 9 5 Minutes Total Score: 9 - Feeding Plan Initial Plan: Elected not to breastfeed exclusively throughout hospitalization Discharge Summary Problems reviewed: Yes Reason For Visit: LABOR ADMIT Procedures: Principal: Plan of Treatment: follow up office 4 weeks Condition: Good - Instructions Diet, Activity, Other Instructions: regular diet, no intercourse , follow up office 4 weeks, if fever, pain, heavy vaginal bleeding call MD Referrals: Felipa Harvey MD [Staff Physician] - Disposition: HOME - Home Medications Comprehensive Discharge Medication List: Ambulatory Orders Vitamins (Sjr) - 1 tab PO DAILY 12/04/17 Ibuprofen [Motrin -] 600 mg PO QID #28 tablet 01/01/20
[2020-01-02 09:06] LABS: BASO % 0.2 % (0-2.0); EOS % 0.6 % (0-4.5); HEMATOCRIT 31.8 % (32.4-45.2); HEMOGLOBIN 10.4 GM/dL (10.7-15.3); LYMPH % 19.6 % (8-40); MCH 30.3 pg (25.7-33.7); MCHC 32.7 g/dl (32.0-36.0); MEAN CELL VOLUME 92.5 fl (80-96); MEAN PLT VOLUME 9.5 fl (7.5-11.1); MONO % 6.2 % (3.8-10.2); NEUT % 73.4 % (42.8-82.8); PLATELET COUNT 129 K/MM3 (134-434); RBC 3.44 M/mm3 (3.60-5.2); RDW 14.3 % (11.6-15.6); WHITE BLOOD COUNT 12.4 K/mm3 (4.0-10.0)
[2020-01-02 09:39] VITALS: BP 121/84; PULSE 84; TEMP 98.2
[2020-01-02] MEDS: PRENATAL VITAMINS W/ FOLIC ACID TABLET (FP) PO SCH (11:02)
[2020-01-02] MEDS ORDERED: SENNOSIDES/DOCUSATE COMBO (SENNA PLUS) TABLET (UD) PO PRN (22:00)
== END 2020-01-02 14:45 | disposition home or self-care (01) | DRG 807 ==
LOC: JLDR 20:00 → J3W 01-01 03:14
PROVIDERS: ADMIT Obstetrics & Gynecology; ATTEND Obstetrics & Gynecology
PROC: 10E0XZZ Delivery of Products of Conception, External Approach (ICD-10-PCS; principal; 2020-01-01)
PROC: 0KQM0ZZ Repair Perineum Muscle, Open Approach (ICD-10-PCS; 2020-01-01)
PROC: 0W8NXZZ Division of Female Perineum, External Approach (ICD-10-PCS; 2020-01-01)
PROC: 10907ZC Drainage of Amniotic Fluid, Therapeutic from Products of Conception, Via Natural or Artificial Opening (ICD-10-PCS; 2020-01-01)
DX: O70.1 Second degree perineal laceration during delivery (principal); Z37.0 Single live birth; O99.824 Streptococcus B carrier state complicating childbirth; O99.214 Obesity complicating childbirth; E66.9 Obesity, unspecified; O99.283 Endocrine, nutritional and metabolic diseases complicating pregnancy, third trimester; E03.8 Other specified hypothyroidism; Z90.721 Acquired absence of ovaries, unilateral; Z87.42 Personal history of other diseases of the female genital tract; Z3A.39 39 weeks gestation of pregnancy
CPT/HCPCS: 36415; 59409; 80048; 85025; 85610; 85730; 86780; 86850; 86900; 86901; C9803; U0003